=== PATIENT | female | born 1960 | race Two or more races ===

== ENCOUNTER 2016-06-11 09:46 | Day surgery (SDC) | payer OTHER ==
--- NOTE | 2016-06-11 09:32 | HP ---
An Iniguez, Bisi : 1960 This is a 55-year-old female who was referred to me by Dr. Armstrong for uterine bleeding after menopause. She had her last normal period two years ago and then an onset of new bleeding which lasted two weeks starting on December 2015 and then repeating on January 2016. Her last pap was normal. Last mammogram was normal as well. OB HISTORY: She is 5, para 4-0-2-4, four vaginal deliveries, 2 spontaneous abortions. 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 No history of sexually transmitted diseases. PAST MEDICAL HISTORY: Positive for obesity, diabetes, hypertension. MEDICATIONS: Includes: 1. Flonase. 2. Vitamin D. 3. Proventil inhaler. 4. Motrin. 5. Lisinopril 10 mg a day. 6. Prilosec. 7. Metformin 500 mg three times daily. ALLERGIES: Negative. PAST SURGICAL HISTORY: Appendectomy. She had some questionable vaginal surgery in the past and left leg surgery. SOCIAL HISTORY: Nonsmoker, nondrinker. FAMILY HISTORY: Negative. REVIEW OF SYSTEMS: As above. PHYSICAL EXAMINATION: GENERAL: Healthy obese female in no acute distress. HEENT: Normal. NECK: Supple. Thyroid not palpable. LUNGS: Clear. HEART: Regular sinus rhythm with no murmurs. BREAST: Soft, no masses, nontender. ABDOMEN: Obese and benign. PELVIC: External genitalia health, vagina healthy, cervix pink with a 2 cm protruding polyp from the os. Uterus normal size, anteverted, and nontender. Adnexa negative. RECTAL: Negative. IMPRESSION: 1. Obesity. 2. Postmenopausal bleeding. 3. Endocervical or endometrial polyp. PLAN: Dilation and curettage, polypectomy, and hysteroscopy. Risks, reasons, complications, living will alternatives discussed all in laypersons terms, all questions were answered. JOB: [id number]
[~2016-06-11 09:46] MED LIST: IV START KIT ONE; LACTATED RINGERS 1,000 ML IV SCH; LACTATED RINGERS 1,000 ML ONE; LIDOCAINE 1% 2 ML VIAL ID PRN
[2016-06-11] MEDS ORDERED: FENTANYL 100 MCG/2 ML VIAL ONE (12:51)
[2016-06-11] MEDS ORDERED: MORPHINE SULFATE 4 MG/ML SYRINGE IV PRN (13:06)
[2016-06-11] MEDS ORDERED: ONDANSETRON 4 MG/2ML 2 ML VIAL IV PRN ×2 (13:06→13:29)
[2016-06-11] MEDS ORDERED: PROMETHAZINE HCL 25 MG/ML VIAL IM PRN (13:06)
[2016-06-11] MEDS ORDERED: LACTATED RINGERS 1,000 ML IV SCH (13:15)
[2016-06-11] MEDS ORDERED: PROPOFOL 20 ML IV ONE (13:25)
[2016-06-11] MEDS ORDERED: ONDANSETRON 4 MG/2ML 2 ML VIAL ONE (13:25)
[2016-06-11] MEDS ORDERED: NEOSTIGMINE METHYLSULFATE 1 MG/ML DOSE ONE (13:25)
[2016-06-11] MEDS ORDERED: GLYCOPYRROLATE 0.2 MG/ML 1ML VIAL ONE (13:25)
[2016-06-11] MEDS ORDERED: METOCLOPRAMIDE HCL 5 MG/ML 2ML VIAL ONE (13:25)
[2016-06-11] MEDS ORDERED: ROCURONIUM BROMIDE 10 MG/ML DOSE IV ONE (13:25)
--- NOTE | 2016-06-11 13:28 | PCMBPN ---
Brief Post Op Note: Date of Procedure: 06/11/16 Start Time: Preoperative Diagnosis: 1. post menopausal bleeding, endocervical polyp Postoperative Diagnosis: 1. Same Procedure: dilatation and curettage, hysteroscopy, polypectomy Surgeon: Chris Gastelum Assist: Anesthesia: general, ms chand Findings: external genitalia healthy, cervix pink with a 3cm polyp, uterus top normal size anteverted, vagina healthy, adnexa negative, sounded to 7cm, scanty curettings, and 4cm polyp removed, hysteroscopy normal Condition: stable Complications: none IV Fluids: mLs of LR Urine Output: 200 mLs Estimated Blood Loss: 10 mLs Tourniquet Time: N/A Specimens: endometrial and endocervical curettings, cervical polyp Implants: Drains: N/A patient tolerated procedure well and was returned to recovery room in stable condition
[2016-06-11] MEDS ORDERED: OXYCODONE/ACETAMINOPHEN 5/325 MG TABLET PO PRN (13:29)
[2016-06-11] MEDS ORDERED: IBUPROFEN 800 MG TABLET PO PRN (13:29)
[2016-06-11] MEDS ORDERED: ALBUTEROL/IPRATROPIUM 2.5/0.5 MG 3 ML/EACH DOSE ONE (13:35)
[2016-06-11] MEDS ORDERED: ALBUTEROL/IPRATROPIUM 2.5/0.5 MG 3 ML/EACH DOSE NEB ONE (13:52)
[2016-06-11] MEDS ORDERED: MORPHINE SULFATE 4 MG/ML SYRINGE ONE (13:59)
--- NOTE | 2016-06-12 08:18 | OP ---
GILES HORN [id number] DATE OF : 1960 NAME OF OPERATION: DILATATION AND CURETTAGE, HYSTEROSCOPY AND POLYPECTOMY. PREOPERATIVE DIAGNOSES: 1. Endocervical polyp. 2. Postmenopausal bleeding. POSTOPERATIVE DIAGNOSIS: 1. Endocervical polyp. 2. Postmenopausal bleeding. MILK DRIER: Dr. Chris Gastelum ANESTHESIA: Cherise Mckeon CRNA, general anesthesia. DESCRIPTION OF PROCEDURE: With the patient under general anesthesia, she was placed in lithotomy position and the vaginal was prepared with betadine and draped in the usual manner. The bladder was emptied at 200 mL of clear yellow urine by straight catheterization. After a time-out was performed, exam under anesthesia revealed the external genitalia healthy and vagina healthy. The cervix was pink, with a 3 cm polyp extruding through the os. The uterus was top normal size and anteverted, adnexa negative. PROCEDURE: A duckbill speculum was inserted into the vagina gently. The anterior lip of the cervix was grasped with a single-prong tenaculum. Next, the polyp was grasped with a uterine forceps, twisted on its stalk and removed. An approximately 4 cm polyp was removed. Following this, curettage from the endocervical canal produced scanty amounts of mucous and blood. Next, the uterus was sounded to 7 cm, the cervix was gradually dilated with Hegar dilators and curettage produced scanty endometrial curettings. Lastly, hysteroscopic exam was performed using normal saline. The findings were normal. Deficit on the normal saline was 60 and photographs were taken. At this point the operation was terminated. The hysteroscope was removed. The single-prong tenaculum was removed. The puncture site on the cervix was bleeding and was cauterized with a silver nitrate stick, resulting in complete hemostasis, and now with complete hemostasis the duckbill speculum was removed. Sponge and instrument count reported as correct. Estimated blood loss of the procedure was 10 mL. The patient tolerated the procedure well and was returned to the recovery room in stable condition. Final diagnosis as above. Pathology pending.
--- NOTE | 2016-06-12 08:32 | DS ---
QUYNH TONGGILES [id number] DATE OF : 1960 HOSPITAL COURSE: This is a 55-year-old female admitted with postmenopausal bleeding and endocervical polyps. She had a D&C, hysteroscopy and polypectomy performed. She tolerated all those procedures well and was sent home in good condition. I advised office visit in one week's time, and activities were explained to the patient prior to her going to sleep. She was sent home on pain medication. Pathology is pending at the time of this dictation. Laboratory tests were normal. FINAL DIAGNOSIS: As above.
--- NOTE | 2016-06-15 13:29 | SURGPATH ---
[facility] [address] [place] [id number] Patient Name: GILES HORN MR#: [id number] : 1960 Gender: F Specimen #: [id number] Collected: 06/11/2016 Received: 06/14/2016 Reported: 06/15/2016 Submitting Phys: JOSE TRAORE I Copy To Phys: [facility] Clinical History / Pre-Operative Diagnosis: POSTMENOPAUSAL BLEEDING; POLYPS Specimen Source / Surgical Procedure Performed: #1-CERVICAL POLYP; #2-ENDOCERVICAL CURETTINGS; #3-ENDOMETRIAL CURETTINGS Interpretation: 1. CERVIX, POLYP, BIOPSY: - BENIGN ENDOMETRIAL POLYP 2. ENDOCERVIX, CURETTAGE: - BENIGN ENDOCERVICAL GLANDS 3. ENDOMETRIUM, CURETTAGE: - BENIGN ATROPHIC ENDOMETRIUM Electronically Signed Out Raquel Kruse M.D. Gross Description: #1 The specimen is received in a formalin filled container labeled with the patient's name and "cervical polyp". A polypoid red-brownlee biopsy is 3.7 x 1.5 x 1 cm. The specimen is multiply sectioned and entirely submitted in cassettes 1A-1D. #2 The specimen is received in a formalin filled container labeled with the patient's name and "endocervical curettings". An aggregate of brownlee tissue admixed with hemorrhagic material is 0.6 x 0.4 x 0.2 cm. Totally embedded in cassette #2. #3 The specimen is received in a formalin filled container labeled with the patient's name and "endometrial curettings". An aggregate of brownlee tissue admixed with hemorrhagic and mucoid material is 0.7 x 0.5 x 0.2 cm. Totally embedded in cassette #3. Rachelle Ho Microscopic Description: 1. Sections show polypoid tissue with endometrial glands and stroma. There is no hyperplasia or neoplasia. 2. Sections show fragments of benign endocervical glandular tissue. There is no dysplasia. 3. Sections show fragments of atrophic endometrial tissue without hyperplasia or neoplasia. 1: [id number] 2: 81667 3: 19347 N84.0
== END 2016-06-11 15:45 | disposition home or self-care (01) ==
LOC: SDC 09:46
PROVIDERS: ATTEND Obstetrics & Gynecology
PROC: 0UDB8ZX Extraction of Endometrium, Via Natural or Artificial Opening Endoscopic, Diagnostic (ICD-10-PCS; principal; 2016-06-11)
PROC: 0UBC8ZX Excision of Cervix, Via Natural or Artificial Opening Endoscopic, Diagnostic (ICD-10-PCS; principal; 2016-06-11)
DX: N95.0 Postmenopausal bleeding (principal); N84.8 Polyp of other parts of female genital tract; E78.00 Pure hypercholesterolemia, unspecified; I10 Essential (primary) hypertension; J45.909 Unspecified asthma, uncomplicated; K21.9 Gastro-esophageal reflux disease without esophagitis; K27.6 Chronic or unspecified peptic ulcer, site unspecified, with both hemorrhage and perforation; E11.9 Type 2 diabetes mellitus without complications; Z79.84 Long term (current) use of oral hypoglycemic drugs
CPT/HCPCS: 58558; J3010; J2270; J2765; J2405; J7120